=== PATIENT | male | born 1960 | race Caucasian/White ===

== ENCOUNTER 2018-01-21 17:59 | Emergency (ER) | payer BC ==
[~2018-01-21] VITALS: Ht 180.3 cm; Wt 88.5 kg
[~2018-01-21 17:59] MED LIST: OFLO5DRO7 RIGHT EAR
[2018-01-21] MEDS ORDERED: ASPIRIN 81 MG CHEW (CHILDREN'S ASA) PO ONE (18:15)
--- NOTE | 2018-01-21 18:16 | ED Chest Pain ---
General Chief Complaint: Chest Pain Stated Complaint: BACK AND CHEST PAIN Source: patient Exam Limitations: no limitations History of Present Illness Date Seen by Provider: Jan 21, 2018 Time Seen by Provider: 18:12 Initial Comments to ER per private vehicle from [facility] urgent care [facility]. He presented there with chest pain. His chest pain has been constant since Wednesday of this week (today is Wednesday). However, occasionally the pain gets worse. He cannot identify any factors that seems to bring about this worsening of pain. The worsening pain is very sharp in nature, the baseline steady pain is dull. It is left-sided and radiates through to his back. He does report some exertional dyspnea over the past year. No swelling in his legs. He is a former smoker but quit 2 years ago. He does have a couple of drinks of alcohol daily. He has not had any aspirin today. He was given a GI cocktail by [facility] urgent care prior to coming here but did not have any relief from that. Timing/Duration: constant Severity/Quality: moderate Location: central Radiation: no radiation Activities at Onset: none ASA po GREENKEEPER: No NTG SL GREENKEEPER: No Associated Symptoms: shortness of breath Allergies and Home Medications Allergies Coded Allergies: No Known Drug Allergies (Unverified , 06/18/16) Patient Home Medication List Home Medication List Reviewed: Yes Review of Systems Constitutional: see HPI EENTM: No Symptoms Reported Respiratory: See HPI; Denies Cough, Denies Shortness of Air, Denies SOA With Exertion, Denies SOA at Rest Cardiovascular: See HPI, Chest Pain Gastrointestinal: No Symptoms Reported Genitourinary: No Symptoms Reported Musculoskeletal: no symptoms reported Skin: no symptoms reported Psychiatric/Neurological: No Symptoms Reported Endocrine: No Symptoms Reported Hematologic/Lymphatic: No Symptoms Reported Past Rfizpuo-Wktrtt-Sgmppw Hx Patient Social History Former Smoker, Quit: Jul 24, 2015 Recent Foreign Travel: No Contact w/Someone Who Travel: No Recent Hopitalizations: No Seasonal Allergies Seasonal Allergies: No Past Medical History Fractures Chronic Ear Infection Physical Exam Vital Signs Vital Signs - First Documented 01/21/18 18:00 Temp 98.0 Pulse 55 Resp 16 B/P (MAP) 181/103 (129) Pulse Ox 100 O2 Delivery Room Air Capillary Refill : Height, Weight, BMI Height: 5'11.00" Weight: 199lbs. 0.0oz. 90.643388wv; 27.8 BMI Method: General Appearance: No Apparent Distress, WD/WN HEENT: PERRL/EOMI, TMs Normal Neck: Full Range of Motion, Normal Inspection Respiratory: Lungs Clear, Normal Breath Sounds, No Accessory Muscle Use, No Respiratory Distress Cardiovascular: Regular Rate, Rhythm, Normal Peripheral Pulses Gastrointestinal: Normal Bowel Sounds, Non Tender, Soft Extremity: Normal Capillary Refill, Normal Inspection Neurologic/Psychiatric: Alert, Oriented x3 Skin: Normal Color, Warm/Dry Progress/Results/Core Measures Results/Orders Lab Results Laboratory Tests Test 01/21/18 18:20 Range/Units White Blood Count 5.0 4.3-11.0 10^3/uL Red Blood Count 3.97 L 4.35-5.85 10^6/uL Hemoglobin 12.8 L 13.3-17.7 G/DL Hematocrit 37 L 40-54 % Mean Corpuscular Volume 93 80-99 FL Mean Corpuscular Hemoglobin 32 25-34 PG Mean Corpuscular Hemoglobin Concent 35 32-36 G/DL Red Cell Distribution Width 13.3 10.0-14.5 % Platelet Count 118 L 130-400 10^3/uL Mean Platelet Volume 10.4 7.4-10.4 FL Neutrophils (%) (Auto) 47 42-75 % Lymphocytes (%) (Auto) 38 12-44 % Monocytes (%) (Auto) 11 0-12 % Eosinophils (%) (Auto) 3 0-10 % Basophils (%) (Auto) 1 0-10 % Neutrophils # (Auto) 2.4 1.8-7.8 X 10^3 Lymphocytes # (Auto) 1.9 1.0-4.0 X 10^3 Monocytes # (Auto) 0.6 0.0-1.0 X 10^3 Eosinophils # (Auto) 0.2 0.0-0.3 10^3/uL Basophils # (Auto) 0.0 0.0-0.1 10^3/uL Prothrombin Time 14.4 12.2-14.7 SEC INR Comment 1.1 0.8-1.4 Activated Partial Thromboplast Time 34 24-35 SEC Sodium Level 140 135-145 MMOL/L Potassium Level 3.8 3.6-5.0 MMOL/L Chloride Level 105 98-107 MMOL/L Carbon Dioxide Level 28 21-32 MMOL/L Anion Gap 7 5-14 MMOL/L Blood Urea Nitrogen 19 H 7-18 MG/DL Creatinine 1.32 H 0.60-1.30 MG/DL Estimat Glomerular Filtration Rate 56 BUN/Creatinine Ratio 14 Glucose Level 98 70-105 MG/DL Calcium Level 9.6 8.5-10.1 MG/DL Magnesium Level 2.3 1.8-2.4 MG/DL Total Bilirubin 0.4 0.1-1.0 MG/DL Aspartate Amino Transf (AST/SGOT) 22 5-34 U/L Alanine Aminotransferase (ALT/SGPT) 20 0-55 U/L Alkaline Phosphatase 81 40-136 U/L Myoglobin 71.8 10.0-92.0 NG/ML Troponin I < 0.30 <0.30 NG/ML B-Type Natriuretic Peptide 101.7 H <100.0 PG/ML Total Protein 7.0 6.4-8.2 GM/DL Albumin 4.5 3.2-4.5 GM/DL My Orders Orders - GEORGI ROLON QUARRY PLUG AND FEATHER DRILLER Cbc With Automated Diff (01/21/18 18:10) Magnesium (01/21/18 18:10) Chest 1 View, Ap/Pa Only (01/21/18 18:10) Ekg Tracing (01/21/18 18:10) Cardiac Profile 1 (01/21/18 18:10) Comprehensive Metabolic Panel (01/21/18 18:10) Myoglobin Serum (01/21/18 18:10) Protime With Inr (01/21/18 18:10) Partial Thromboplastin Time (01/21/18 18:10) O2 (01/21/18 18:10) Monitor-Rhythm Ecg Trace Only (01/21/18 18:10) Lipid Panel (01/22/18 06:00) Aspirin Chewable Tablet (Baby Aspirin Ch (01/21/18 18:15) Saline Lock/Iv-Start (01/21/18 18:10) BNP (01/21/18 18:10) Ct Angio Chest W (01/21/18 18:23) Iohexol Injection (Omnipaque 350 Mg/Ml 1 (01/21/18 18:45) Sodium Chloride Flush (Catheter Flush Sy (01/21/18 18:45) Ns (Ivpb) (Sodium Chloride 0.9%) (01/21/18 18:45) Pharmacy Communication (Pharmacy Communi (01/21/18 18:35) Ns Iv 1000 Ml (Sodium Chloride 0.9%) (01/21/18 19:00) Ekg Tracing (01/21/18 19:49) Orphenadrine Injection (Norflex Injectio (01/21/18 20:00) Ketorolac Injection (Toradol Injection) (01/21/18 20:00) Medications Given in ED Current Medications Medications Dose Ordered Sig/Basilio Route Start Time Stop Time Status Last Admin Dose Admin Aspirin 324 mg ONCE ONCE PO 01/21/18 18:15 01/21/18 18:16 DC 01/21/18 18:19 324 MG Iohexol 150 ml ONCE ONCE IV 01/21/18 18:45 01/21/18 18:46 DC 01/21/18 19:09 110 ML Ketorolac Tromethamine 30 mg ONCE ONCE IVP 01/21/18 20:00 01/21/18 20:01 01/21/18 19:55 30 MG Orphenadrine Citrate 60 mg ONCE ONCE IV 01/21/18 20:00 01/21/18 20:01 01/21/18 19:55 60 MG Sodium Chloride 10 ml NEEDED PRN IV 01/21/18 18:45 01/21/18 19:10 10 ML Sodium Chloride 250 ml ONCE ONCE IV 01/21/18 18:45 01/21/18 18:46 DC 01/21/18 19:08 80 ML Vital Signs/I&O 01/21/18 01/21/18 18:00 19:55 Temp 98.0 98.0 Pulse 55 Resp 16 B/P (MAP) 181/103 (129) Pulse Ox 100 O2 Delivery Room Air Departure Communication (Admissions) 1948- heart rate is sinus about 42-44. No change in his pain. 1999- repeat EKG shows sinus bradycardia rate of 45 no ectopy normal intervals otherwise and no ST segment changes. I spoke with Dr. Otero, this patient is not a diabetic, has no personal history of heart disease, he former smoker but not a current smoker, is on no medications. Troponin is negative despite nearly a week of chest pain , his chest pain is likely not ischemic in nature. Dr. Otero agrees to follow up with him in the clinic next week. Impression Primary Impression: Chest pain Disposition: 01 HOME, SELF-CARE Condition: Stable Departure-Patient Inst. Decision time for Depature: 19:41 Referrals: SONIA HURT MD FACP [facility] Jaime OTERO MD, BASHAR J MD SALVADOR, LISA A MD (PCP/Family) Primary Care Physician Patient Instructions: Chest Pain (DC) Add. Discharge Instructions: 1. Take a baby aspirin daily if you do not do so already 2. On Wednesday call one of the cardiologists of your choosing to make an appointment to be seen for follow-up and further evaluation. Return to ER in the interim for any worsening chest pain or other concerns. GEORGI ROLON QUARRY PLUG AND FEATHER DRILLER Jan 21, 2018 18:16
[2018-01-21 18:29] LABS: BASOPHILS % (AUTO) 1 % (0-10); EOSINOPHILS # (AUTO) 0.2 10^3/uL (0.0-0.3); EOSINOPHILS % (AUTO) 3 % (0-10); HEMATOCRIT 37 % (40-54); HEMOGLOBIN 12.8 G/DL (13.3-17.7); LYMPHOCYTES # (AUTO) 1.9 X 10^3 (1.0-4.0); LYMPHOCYTES % (AUTO) 38 % (12-44); MEAN CORPUSCULAR HEMOGLOBIN 32 PG (25-34); MEAN CORPUSCULAR HGB CONC 35 G/DL (32-36); MEAN CORPUSCULAR VOLUME 93 FL (80-99); MEAN PLATELET VOLUME 10.4 FL (7.4-10.4); MONOCYTES # (AUTO) 0.6 X 10^3 (0.0-1.0); MONOCYTES % (AUTO) 11 % (0-12); NEUTROPHILS # (AUTO) 2.4 X 10^3 (1.8-7.8); NEUTROPHILS % (AUTO) 47 % (42-75); PLATELET COUNT 118 10^3/uL (130-400); RED BLOOD COUNT 3.97 10^6/uL (4.35-5.85); RED CELL DISTRIBUTION WIDTH 13.3 % (10.0-14.5)
[2018-01-21 18:41] LABS: INR 1.1 (0.8-1.4); PROTHROMBIN TIME PATIENT 14.4 SEC (12.2-14.7)
[2018-01-21] MEDS ORDERED: IOHEXOL 350 MG/ML 150 ML (OMNIPAQUE 350) VIAL IV ONE (18:45)
[2018-01-21] MEDS ORDERED: NS 250 ML (IVPB) BAG IV ONE (18:45)
[2018-01-21 18:49] LABS: ALANINE AMINOTRANSFERASE 20 U/L (0-55); ALBUMIN 4.5 GM/DL (3.2-4.5); ALKALINE PHOSPHATASE 81 U/L (40-136); BILIRUBIN,TOTAL 0.4 MG/DL (0.1-1.0); BUN/CREATININE RATIO 14; CALCIUM 9.6 MG/DL (8.5-10.1); CARBON DIOXIDE 28 MMOL/L (21-32); CHLORIDE 105 MMOL/L (98-107); CREATININE SERUM 1.32 MG/DL (0.60-1.30); GFR ESTIMATED 56; GLUCOSE 98 MG/DL (70-105); MAGNESIUM 2.3 MG/DL (1.8-2.4); POTASSIUM 3.8 MMOL/L (3.6-5.0); SODIUM 140 MMOL/L (135-145)
[2018-01-21 18:56] LABS: MYOGLOBIN SERUM 71.8 NG/ML (10.0-92.0)
[2018-01-21] MEDS ORDERED: NS IV 1000 ML 1,000 ML IV SCH (19:00)
[2018-01-21] MEDS: CATHETER FLUSH 10 ML SYR IV PRN ×2 (19:08→19:10)
--- NOTE | 2018-01-21 19:11 | Diagnostic Imaging Report ---
INDICATION: Chest and back pain. COMPARISON: None. FINDINGS: Single view of the chest demonstrates clear lungs bilaterally. The heart is normal. There is no pneumothorax. Osseous structures are normal. IMPRESSION: Negative chest. Dictated by: Dictated on workstation # [id number]
--- NOTE | 2018-01-21 19:29 | Diagnostic Imaging Report ---
PROCEDURE: CT angiography of the chest with contrast. TECHNIQUE: Multiple contiguous axial images were obtained through the chest after uneventful bolus administration of intravenous contrast. Reconstructed CTA MIP acquisitions were also performed. INDICATION: Left-sided chest pain. COMPARISON: None. FINDINGS: The heart size is normal. There is no pericardial effusion. Minimal coronary artery disease is present. There is no lymphadenopathy. Minimal esophageal thickening is seen in the mid aspect. There is no obstruction. The pulmonary arteries and aorta are grossly normal. The lungs are clear throughout. No mass, nodule or infiltrate is seen. There is no pleural or pericardial effusion. Osseous structures are grossly normal. Visualized upper abdominal solid organs are intact. IMPRESSION: 1. No pulmonary embolism identified. 2. Coronary artery disease. 3. No focal infiltrate identified. Dictated by: Dictated on workstation # [id number]
[2018-01-21] MEDS ORDERED: ORPHENADRINE 60 MG/2 ML (NORFLEX) AMP IV ONE (20:00)
[2018-01-21] MEDS ORDERED: KETOROLAC 30 MG/ML VIAL IVP ONE (20:00)
[2018-01-21 20:36] VITALS: BP 135/86
== END 2018-01-21 20:35 | disposition home or self-care (01) ==
LOC: EDUNIT# 17:59 → ER 18:00
DX: R07.89 Other chest pain (principal); Z87.891 Personal history of nicotine dependence
CPT/HCPCS: 36415; 71045; 71275; 80053; 83735; 83874; 83880; 84484; 85025; 85610; 85730; 93005; 93041; 96361; 96374; 96375

== ENCOUNTER 2018-03-21 12:20 | Outpatient (RCR) | payer BC | END 2018-03-27 | disposition home or self-care (01) | LOC: CARD 12:20 | PROVIDERS: ATTEND Internal Medicine Interventional Cardiology | DX: R07.9 Chest pain, unspecified (principal); R42 Dizziness and giddiness; R06.02 Shortness of breath; R00.1 Bradycardia, unspecified; Z87.891 Personal history of nicotine dependence | CPT/HCPCS: 93270 ==

== ENCOUNTER → 2018-08-18 | Day surgery (SDC) | payer BC ==
[~2018-08-18] VITALS: Ht 180.3 cm; Wt 90.7 kg
[~2018-08-18] MED LIST changes: +LIDOCAINE 1% INJ 20 ML 20 ML VIAL ONE
[2018-08-18 08:49] VITALS: BP 132/87
--- NOTE | 2018-08-18 21:59 | Implantation of Loop Monitor ---
Implant of Loop Monitior PROCEDURE PHYSICIAN: Zari Lazar MD IMPLANTATION OF LOOP MONITOR REPORT DATE OF PROCEDURE: 08/18/18 ATTENDING PHYSICIAN: Dr. Nba Lazar. PERFORMING PHYSICIAN: Dr. Nba Lazar. INDICATION: Long-term surveillance of atrial fibrillation PREOP DIAGNOSIS: Long-term surveillance of atrial fibrillation POSTOP DIAGNOSIS: Atrial fibrillation, s/p implantation of loop recorder. PROCEDURE DETAILS: The patient is a 58 male requiring long-term surveillance for PAF. Therefore implantable loop recorder was discussed and agreed with the patient. Informed consent was taken. All risks and complications were discussed at length. The patient was draped and prepped in the usual sterile fashion. Local anesthesia was lidocaine, which was given in the substernal area close to the 4th intercostal space. A [employer] Loop monitor was implanted according to the protocol. Steri-Strips were placed at the end of the procedure. There were no complications and the patient tolerated the procedure well. The device was interrogated with a voltage of 1mV. ANESTHESIA: Local anesthesia with lidocaine. COMPLICATIONS: None CONTRAST/FLUOROSCOPY: None CONCLUSION: 1. 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 2. No complication and the patient tolerated the procedure well. Zari Lazar MD, RS, CCDS Cardiac Electrophysiology Jaime LAZAR MD Aug 18, 2018 21:59
== END | disposition home or self-care (01) ==
LOC: CATH 08:30
PROVIDERS: ATTEND Internal Medicine Interventional Cardiology
DX: I48.0 Paroxysmal atrial fibrillation (principal); I49.5 Sick sinus syndrome; Z82.49 Family history of ischemic heart disease and other diseases of the circulatory system; Z87.891 Personal history of nicotine dependence; Z79.82 Long term (current) use of aspirin
CPT/HCPCS: 33285; 93005

== ENCOUNTER 2018-10-03 10:07 | Day surgery (SDC) | payer BC ==
[~2018-10-03] VITALS: Ht 180.3 cm; Wt 90.7 kg
[~2018-10-03 10:07] MED LIST changes: -LIDOCAINE 1% INJ 20 ML 20 ML VIAL ONE
--- OUTSIDE RECORDS SUMMARY | 2018-10-03 10:10 | XMS REPORT | Clinical Summary ---
Author Author [facility] Organization [facility] Address Unknown Phone Unavailable Care Team Providers Care Student Success Coach Name Role Phone PCP Unavailable Allergies Not on File Current Medications Not on file Active Problems Not on file Social History Tobacco Use Types Packs/Day Years Used Date Never Assessed Sex Assigned at Date Recorded Not on file Last Filed Vital Signs Not on file Plan of Treatment Not on file Results Not on filefrom Last 3 Months
--- OUTSIDE RECORDS SUMMARY | 2018-10-03 10:10 | XMS REPORT ---
Author AMOL Cordno [facility] Address [address] [facility] [address] [place], [place] [id number] Care Team Providers Care Miniature Set Designer Name Role Phone AMOL FLANAGAN PCP AMOL FLANAGAN PreferredProvider Allergies and Adverse Reactions Name Reaction Notes No known allergies Plan of Treatment Not available. Medications Active Name Start Date Estimated Completion Date SIG Comments fluticasone 50 mcg/actuation nasal spray,suspension 04/28/2018 spray 1 spray (50 mcg) in each nostril by intranasal route once daily Problem List Not available. Vital Signs Date Time BP-Sys(mm[Hg] BP-Steffany(mm[Hg]) HR(bpm) RR(rpm) Temp WT HT HC BMI BSA BMI Percentile O2 Sat(%) 04/28/2018 4:08:00 PM 128 mmHg 72 mmHg 56 bpm 18 rpm 98.2 F 206 lbs 98 % Social History Name Description Comments Alcohol Current every day Tobacco Never smoker Chewing Tobacco Current every day History of Procedures Not available. Results Summary Not available. History Of Immunizations Not available. History of Past Illness Name Date of Onset Comments No significant medical history Moderate Chronic Recurrent Right ear pain Apr 28 2018 4:09PM Sensorineural hearing loss (SNHL) of both ears Apr 28 2018 4:09PM Payers Insurance Name Company Name Plan Name Plan Number Policy Number Policy Group Number [facility] Date [id number] N/A History of Encounters Visit Date Visit Type Provider 04/28/2018 Office visit AMOL WING
--- OUTSIDE RECORDS SUMMARY | 2018-10-03 10:10 | XMS REPORT | Continuity of Care Document ---
Author Organization Unknown Address Unknown Allergies Active Description Code Type Severity Reaction Onset Reported/Identified Relationship to Patient Clinical Status Yes NO KNOWN DRUG ALLERGIES UNKNOWN NO KNOWN DRUG ALLERG Medications There is no data. Problems Date Dx Coded Attending Type Code Diagnosis Diagnosed By 01/25/2018 Esther Frost 053.9 HERPES ZOSTER WITHOUT MENTION OF COMPLICATION 01/25/2018 SantoshEsther W 427.81 SINOATRIAL NODE DYSFUNCTION 01/25/2018 Esther Frost W 786.09 OTHER DYSPNEA AND RESPIRATORY ABNORMALITY 01/25/2018 SantoshEsther W B02.9 ZOSTER WITHOUT COMPLICATIONS 01/25/2018 SantoshEsther W R00.1 BRADYCARDIA, UNSPECIFIED 01/25/2018 SantoshCindya W R06.02 SHORTNESS OF BREATH 01/25/2018 Esther Frost W 053.9 HERPES ZOSTER WITHOUT MENTION OF COMPLICATION 01/25/2018 Santosh, Esther W 427.81 SINOATRIAL NODE DYSFUNCTION 01/25/2018 Esther Frost W 786.09 OTHER DYSPNEA AND RESPIRATORY ABNORMALITY 01/25/2018 Esther Frost W B02.9 ZOSTER WITHOUT COMPLICATIONS 01/25/2018 Santosh, Esther W R00.1 BRADYCARDIA, UNSPECIFIED 01/25/2018 Cindy Frosta W R06.02 SHORTNESS OF BREATH Procedures There is no data. Results Test Result Range Thyroid Stimulating Hormone - 01/25/18 09:24 TSH 4.20 mIU/mL 0.32-5.00 Encounters ACCT No. Visit Date/Time Discharge Status Pt. Type Provider Facility Loc./Unit Complaint [id number] 10/02/2018 17:10:00 10/02/2018 23:59:00 DIS Outpatient Nirav Cotton [id number] 01/25/2018 09:17:00 01/25/2018 23:59:00 DIS Outpatient Santosh, Esther [id number] 04/28/2018 12:07:52 04/28/2018 23:59:59 CLS Outpatient AMOL FLANAGAN
[2018-10-03] MEDS ORDERED: LIDOCAINE 1% INJ 20 ML 20 ML VIAL ONE (10:14)
[2018-10-03 10:44] VITALS: BP 131/68
--- NOTE | 2018-10-03 10:47 | NUR ---
LINQ REMOVED AT BEDSIDE BY THIS RN WITH DR. OTERO PRESENT. LINQ OUT OF PATIENT BODY ABOUT 1 INCH. SKIN AROUND INCISION PINK TO RED. NO SWELLING OR DRAINAGE. THIS RN REMOVED LINQ, CLEANED AREA AROUND INCISION WITH CHLOROPREP. INCISION WAS CLEANED WITH BETADINE. DR. OTERO INSPECTED WOUND. ORDERS TO PLACE MASITOL, STERI STRIPS, 4X4 GAUZE AND OPSITE OVER DRESSING. PATIENT TO LEAVE DRESSING ON UNTIL APPOINTMENT ON WEDNESDAY FOR PACEMAKER PLACEMENT. PATIENT ALSO GIVEN ORDERS BY DR. OTERO TO CONTINUE ON ANTIBIOTICS. PATIENT VERBALIZED UNDERSTANDING. PATIENT DISMISSED AT THIS TIME.
--- NOTE | 2018-10-03 11:04 | Cardiology Post Procedure Note ---
Post-Procedure Note Physician (s)/Customer Services Coordinator (s) Physician Jaime OTERO MD Pre-Procedure Diagnosis Pre-Procedure Diagnosis: Paroxysmal atrial fibrillation Post-Procedure Note Procedure Start Date: Oct 03, 2018 Procedure Start Time: 10:30 Name of Procedure: ILR explantation Findings/Procedure Note Previous implantable loop recorder for paroxysmal atrial fibrillation, skin erosion. After the area was made sterile with antiseptic, implantable loop recorder was taken out. Sterile dressing done. Estimated blood loss (mL): 0 Post-Procedure Diagnosis Post-operative diagnosis: Successful ILR explantation Jaime OTERO MD Oct 03, 2018 11:04
== END 2018-10-03 10:50 | disposition home or self-care (01) ==
LOC: CATH 10:07
PROVIDERS: ATTEND Internal Medicine Interventional Cardiology
DX: I48.0 Paroxysmal atrial fibrillation (principal); R00.1 Bradycardia, unspecified; I49.5 Sick sinus syndrome; R00.2 Palpitations; I48.4 Atypical atrial flutter; Z79.01 Long term (current) use of anticoagulants
CPT/HCPCS: 33286

== ENCOUNTER 2018-10-06 09:59 | Day surgery (SDC) | payer BC ==
[2018-10-06] VITALS (7 sets, daily range): BP systolic 114–132; BP diastolic 71–89
[~2018-10-06] VITALS: Ht 180.3 cm; Wt 95.3 kg
[2018-10-06] MEDS ORDERED: NS IV 1000 ML 1,000 ML IV ONE (10:06)
[2018-10-06] MEDS ORDERED: HEParin 1000 UNIT/ML (10ML VIAL) FOR BOLUS ONE (10:08)
[2018-10-06] MEDS ORDERED: LIDOCAINE 1% INJ 20 ML 20 ML VIAL ONE (10:08)
[2018-10-06] MEDS ORDERED: NS IV 1000 ML 1,000 ML ONE (10:08)
[2018-10-06] MEDS ORDERED: ceFAZolin INJECTION 1,000 MG ONE ×2 (10:09→15:27)
[2018-10-06] MEDS ORDERED: ceFAZolin INJECTION 1,000 MG VIAL IV ONE (10:15)
[2018-10-06] MEDS ORDERED: BACITRACIN INJECTION 50,000 UNIT, SODIUM CHLORIDE 0.9% IRRIGATIO 500 ML IR ONE ×2 (10:15)
[2018-10-06] MEDS ORDERED: APIX5TAB PO (10:25)
[2018-10-06 10:30] LABS: HEMOGLOBIN 12.5 G/DL (13.3-17.7); MEAN PLATELET VOLUME 10.4 FL (7.4-10.4); RED CELL DISTRIBUTION WIDTH 13.6 % (10.0-14.5); WHITE BLOOD COUNT 7.4 10^3/uL (4.3-11.0)
[2018-10-06 10:47] LABS: INR 1.1 (0.8-1.4); PROTHROMBIN TIME PATIENT 14.9 SEC (12.2-14.7)
[2018-10-06 10:53] LABS: ALBUMIN 4.4 GM/DL (3.2-4.5); BILIRUBIN,TOTAL 0.7 MG/DL (0.1-1.0); CALCIUM 9.5 MG/DL (8.5-10.1); CREATININE SERUM 1.3 MG/DL (0.60-1.30); POTASSIUM 4.1 MMOL/L (3.6-5.0); TOTAL PROTEIN 7.6 GM/DL (6.4-8.2)
[2018-10-06] MEDS ORDERED: NS (IVPB) 50 ML ONE (11:18)
--- NOTE | 2018-10-06 13:03 | Cardiac Procedure Note-CS/ASA ---
Pre-Procedure Note Pre-Op Procedure Note H&P Reviewed The H&P was reviewed, patient examined and no changes noted. Date H&P Reviewed: Oct 06, 2018 Time H&P Reviewed: 13:02 Conscious Sedation Pre-Proced Time 13:02 ASA Score 3 For ASA 3 and 4: Consider anesthesia and medical clearance. Also, for patients with a history of failed moderate sedation consider anesthesia. Airway Lungs Heart ASA score ASA 1: a normal healthy patient ASA 2: a patient with a mild systemic disease (mid diabetes, controlled hypertension, obesity ASA 3: a patient with a severe systemic disease that limits activity (angina , COPD, prior Myocardial infarction) ASA 4: a patient with an incapacitating disease that is a constant threat to life (CHF, renal failure) ASA 5: a moribund patient not expected to survive 24 hrs. (ruptured aneurysm) ASA 6: a declared brain- patient whose organs are being harvested. For emergent operations, add the letter E after the classification Mallampati Classification Grade 1 Sedation Plan Analgesia, Amnesia, Plan communicated to team members, Discussed options with patient/fam, Discussed risks with patient/fam The patient is an appropriate candidate to undergo the planned procedure, sedation, and anesthesia. The patient immediately re-assessed prior to indication. Jaime OTERO MD Oct 06, 2018 13:03
[2018-10-06] MEDS ORDERED: MIDAZOLAM 5 MG/5 ML (VERSED) VIAL ONE ×2 (13:22→14:01)
[2018-10-06] MEDS ORDERED: fentaNYL INJECTION 100 MCG/2 ML AMP ONE ×2 (13:22→14:01)
[2018-10-06] MEDS ORDERED: NS (IVPB) 100 ML ONE (15:27)
[2018-10-06] MEDS ORDERED: NEO/POLY/BAC (NEOSPORIN) OINT 15 GM TUBE ONE (15:33)
[2018-10-06] MEDS ORDERED: NS IV 1000 ML 1,000 ML IV SCH (15:43)
--- NOTE | 2018-10-06 15:43 | Permanent Pacemaker Implant ---
Dual Chamber Pacemaker Implant PROCEDURE PHYSICIAN: Zari Lazar MD DUAL CHAMBER PACEMAKER IMPLANTATION: DATE OF PROCEDURE: 10/06/18 CARDIAC FILLING STATION EQUIPMENT MECHANIC: Dr. Zari Lazar INDICATION: Symptomatic severe sinus node dysfunction, tachycardia bradycardia syndrome. PREOPERATIVE DIAGNOSIS: Symptomatic severe sinus node dysfunction, tachycardia bradycardia syndrome. POSTOPERATIVE DIAGNOSIS: Successful dual-chamber permanent pacemaker implantation. HISTORY: This is a 58-year-old gentleman with history of paroxysmal atrial fibrillation. He had a loop monitor placed for atrial fibrillation which showed significant sinus pauses, severe symptomatic sinus node dysfunction, tachycardia bradycardia syndrome. Dual-chamber permanent pacemaker was recommended. PROCEDURE PERFORMED: 1. Dual-chamber permanent pacemaker implantation. 2. Fluoroscopy. 3. Central venous access. 4. Venogram. ANESTHESIA: Local anesthesia, conscious sedation. COMPLICATIONS: None. ESTIMATED BLOOD LOSS:20 mL. SPECIMENS: None. ORAL ANTICOAGULATION: None. FLUOROSCOPY TIME: 17.8 minutes. FLUOROSCOPY DOSE: 652 mgy. CONTRAST DOSE: 20 ml. PROCEDURE DETAILS: The patient is a 58 male and after all of the patients questions were answered, the patient was brought to the EP Lab. The patient's left chest was prepped and draped in sterile fashion. A 2 inch horizontal incision was made 1 cm below the clavicle and dissection carried down to the pectoralis fascia. Using the modified Seldinger technique and under fluoroscopy guidance, the anterior aspect of the left axillary vein was accessed 2 times. The J wires were secured to the drapes with a mosquito clamp. A 6-Ecuadorean sheath was introduced over one of the J-wires. The RV lead was then inserted. The RV lead was directed across the tricuspid valve to the apical septal portion of the right ventricle. The position was checked in BOLIVIAN and GERMAIN views. The screw was deployed and the lead connected to the sas clinical programmer. Close sensing and pacing thresholds were obtained. Diaphragmatic pacing was ruled out. The lead was secured with 2-0 silk ties to the underlying muscle and fascia. Next, a 6-Ecuadorean sheath was introduced through the remaining J-wire. An atrial lead was then introduced and guided to the level of the right appendage. The screw was deployed and the lead was connected to the interrogator. Good sensing and pacing thresholds were obtained. Diaphragmatic pacing was ruled out. The leads were secured with 2-0 silk ties to the underlying muscle and fascia. The leads were connected to the device in a hermetic fashion. The device and leads were placed in the pocket. Aggressive irrigation with saline solution was done. The device was secured to the underlying muscle and fascia with a 2-0 silk tie. interrogation of the device revealed good integrity of all the leads and good connections. The wound was then closed using 2 layers. The first layer was interrupted 2-0 absorbable Vicryl suture. The last layer was a single subcuticular layer with 4- 0 Vicryl suture. Half inch Steri-Strips and a small dressing were then applied to the wound. The patient tolerated the procedure well and was returned to the recovery room in stable condition with stable vital signs. DEVICE INFORMATION: [employer] Eluna [address] DR Smith, reference number [id number]. Serial number [id number]. RA LEAD: Solia S 53 [employer], reference number [id number]. Serial number [id number]. RV LEAD: Solia S 60 [employer], reference number [id number], serial number [id number]. PER-OPERATIVE DEVICE INTERROGATION: Right atrial sensing 3.8 mV, impedance 644 ohms, threshold 0.7 V at 0.5 ms. RV sensing 8.0 mV, impedance 590 ohms, threshold 0.5 V at 0.5 ms. IMMEDIATE POSTOPERATIVE DEVICE INTERROGATION: Right atrial sensing 4.3 mV, impedance 507 ohms, threshold 0.8 V at 0.4 ms. RV sensing 6.3 mV, impedance 546 ohms, threshold 0.6 V at 0.4 ms. PLAN: The patient transferred to the ICU. We will continue with two more doses of IV antibiotics. We will check a chest x-ray and interrogate the device in the morning. The patient will continue on oral antibiotics for 3 days. Zari Lazar MD, [facility], CCDS Cardiac Electrophysiology Jaime LAZAR MD Oct 06, 2018 15:43
[2018-10-06] MEDS ORDERED: ceFAZolin INJECTION 1,000 MG in WATER (STERILE) FOR INJECTION 10 ML IV ONE (15:45)
[2018-10-06] MEDS ORDERED: PATIENT MAY USE OWN MEDS, ALL PO SCH (15:45)
--- NOTE | 2018-10-06 19:25 | Diagnostic Imaging Report ---
INDICATION: Pacemaker placement. COMPARISON: Comparison made with prior examination from 01/21/2018. FINDINGS: Transvenous pacemaker overlies the left hemithorax. There is cardiomegaly and some minimal venous congestion. There is no pleural effusion or pneumothorax. Mediastinum is unremarkable. IMPRESSION: Cardiomegaly and some minimal central pulmonary venous congestion. No evidence of pneumothorax following pacemaker placement. Dictated by: Dictated on workstation # [id number]
[2018-10-07 00:08] VITALS: BP 120/70
[2018-10-07 03:49] LABS: HEMOGLOBIN 12.5 G/DL (13.3-17.7); RED CELL DISTRIBUTION WIDTH 13.6 % (10.0-14.5); WHITE BLOOD COUNT 6.2 10^3/uL (4.3-11.0)
[2018-10-07 04:05] VITALS: BP 122/79
[2018-10-07 04:06] LABS: ALBUMIN 4.2 GM/DL (3.2-4.5); BILIRUBIN,TOTAL 0.7 MG/DL (0.1-1.0); CALCIUM 9.2 MG/DL (8.5-10.1); CREATININE SERUM 1.28 MG/DL (0.60-1.30); POTASSIUM 3.8 MMOL/L (3.6-5.0); TOTAL PROTEIN 7.4 GM/DL (6.4-8.2)
[2018-10-07] MEDS ORDERED: APIXABAN 5 MG (ELIQUIS) TABLET PO SCH (09:00)
--- NOTE | 2018-10-07 10:05 | Cardiology Discharge Summary ---
Diagnosis/Chief Complaint Date of Admission 10/06/2018 Date of Discharge 10/07/2018 Admission Diagnosis Paroxysmal atrial fibrillation, tachycardia-bradycardia syndrome. Final/Discharge Diagnosis Successful dual-chamber permanent pacemaker implantation Chief Complaint/HPI Chief Complaint/HPI This is a 58-year-old gentleman with history of paroxysmal atrial fibrillation. He had a loop monitor placed for atrial fibrillation which showed significant sinus pauses, severe symptomatic sinus node dysfunction, tachycardia bradycardia syndrome. Dual-chamber permanent pacemaker was recommended. Discharge Summary Procedures Successful dual-chamber permanent pacemaker implantation Discharge Physical Examination Normal left chest examination with no evidence of hematoma or swelling. Normal cardiac and respiratory examination. Hospital Course Was the Problem List Reviewed?: Yes Unremarkable. Pending Labs Laboratory Tests 10/07/18 03:15: White Blood Count 6.2, Red Blood Count 3.96, Hemoglobin 12.5, Hematocrit 38, Mean Corpuscular Volume 95, Mean Corpuscular Hemoglobin 32, Mean Corpuscular Hemoglobin Concent 33, Red Cell Distribution Width 13.6, Platelet Count 144, Mean Platelet Volume 11.0, Sodium Level 141, Potassium Level 3.8, Chloride Level 107, Carbon Dioxide Level 19, Anion Gap 15, Blood Urea Nitrogen 13, Creatinine 1.28, Estimat Glomerular Filtration Rate 58, BUN/Creatinine Ratio 10 , Glucose Level 110, Calcium Level 9.2, Corrected Calcium 9.0, Total Bilirubin 0.7, Aspartate Amino Transf (AST/SGOT) 22, Alanine Aminotransferase (ALT/SGPT) 20, Alkaline Phosphatase 93, Total Protein 7.4, Albumin 4.2 Radiology Reviewed Chest x-ray did not show any pneumothorax. Discussion & Recommendations Discussion Discharge instructions discussed at length with the patient. Discharge took over 30 minutes to complete. Wound check with RN in one week and follow-up in one month. Patient will continue Keflex for 3 days. Follow up appt.: Dr. Lazar in a month Dicharge Diet: Cardiac Diet Activity as Tolerated: Yes Home Medications Reviewed patient Home Medication Reconciliation performed by pharmacy medication reconciliations central sterile technician and/or nursing. Patients Allergies have been reviewed. Discharge Home Medications: Reviewed and agree with Discharge Medication list on patient's Discharge Instruction sheet Condition at discharge Stable. Instructions to patient/family Discussed at length with the family. Jaime LAZAR MD Oct 07, 2018 10:05
[2018-10-07] MEDS ORDERED: DILT120C82 PO (10:08)
--- NOTE | 2018-10-07 10:09 | Discharge Inst-Post Device ---
Discharge Inst-Post Device Follow up/Plan wastewater manager check in a week. Dr Lazar follow up with device interrogation in one month. Heart Healthy Diet Do not lift arm on side of device placement above head for 4 weeks. Do not push and pull heavy objects for 4 weeks. Activity as tolerated. Leave dressing on until follow up at the office. Jaime LAZAR MD Oct 07, 2018 10:09
[2018-10-07 11:28] VITALS: BP 122/79
== END 2018-10-07 10:30 | disposition home or self-care (01) ==
LOC: CATH 09:59 → ICU 16:31 → CATH 10-07 10:30
PROVIDERS: ATTEND Internal Medicine Interventional Cardiology
DX: I48.0 Paroxysmal atrial fibrillation (principal); I49.5 Sick sinus syndrome; I48.3 Typical atrial flutter; I27.20 Pulmonary hypertension, unspecified; Z87.891 Personal history of nicotine dependence
CPT/HCPCS: 36415; 71045; 80053; 85027; 85610; 85730; 87081; 93005